=== PATIENT | male | born 1955 | race Caucasian/White ===

== ENCOUNTER 2017-03-23 00:09 | Emergency (ER) | payer BC ==
[~2017-03-23] VITALS: Ht 172.7 cm; Wt 90.3 kg
[~2017-03-23 00:09] MED LIST: GABA300
[2017-03-23 00:20] VITALS: BP 186/105; PULSE 75; RESP 16; TEMP 98.1; O2SAT 96
[2017-03-23 02:02] LABS: BLOOD, URINE TRACE (NEG); GLUCOSE,URINE NEG (NEG); KETONE, URINE TRACE mg/dL (NEG); NITRITE,URINE NEG (NEG); PH, URINE 5.5 (5.0-8.5)
[2017-03-23 02:08] LABS: URINE COLOR YELLOW (YELLW/STRAW)
[2017-03-23 02:09] LABS: CALCIUM OXALATE CRYSTALS,URINE RARE /hpf; MUCUS URINE FEW /lpf (OCC); SQUAMOUS EPITHELIAL CELL URINE 0-5 /hpf (0-5); WBC, URINE 0-2 /hpf (0-5)
[2017-03-23 02:10] LABS: COMMENT (UR) CULT NOT INDICATED; CULTURE IF INDICATED CULT NOT INDICATED
[2017-03-23] MEDS ORDERED: SODIUM CHLOR 0.9% 1000 ML INJ 1,000 ML IV ONE (02:12)
[2017-03-23] MEDS ORDERED: KETOROLAC TROMETHAMINE 30 MG/ML (IVP) VIAL IVP ONE (02:15)
--- NOTE | 2017-03-23 02:17 | PD ---
HPI Chief Complaint: Flank/Kidney Pain Time Seen by Provider: 02:08 Travel History International Travel<30 days: No Contact w/Intl Traveler<30days: No Traveled to known affect area: No History of Present Illness HPI The patient is a 61-year-old male with a history of urinary stones who complains of right flank pain yesterday morning. His pain level was a 6/10 and sharp pain, typical of these previous kidney stones. He states he has not had CT scans of the abdomen recently. At this time he has no pain but states the pain comes on and off. He denies any fever. PFSH Past Medical History Asthma: No Blood Disorders: No Cancer: No Cardiovascular Problems: No Chemotherapy: No COPD: Yes (emphysema ) Cerebrovascular Accident: No Diminished Hearing: No Endocrine: No Genitourinary: No Headaches: No Immune Disorder: No Musculoskeletal: No Neurologic: Yes Psychiatric: No Reproductive: No Respiratory: Yes (on cpap at night) Migraines: No Radiation Therapy: No Seizures: No Sleep Apnea: Yes Tetanus Vaccination: > 5 Years Influenza Vaccination: Yes Past Surgical History Abdominal Surgery: Yes (splenectomy 1980 ) AICD: No Arteriovenous Shunt: No Insulin Pump: No Joint Replacement: No Neurologic Surgery: Yes (1980 head trauma) Pacemaker: No Other Surgery: Yes (sinus surgery ) Social History Alcohol Use: Yes (2X weekly) Tobacco Use: No Substance Use: No Allergies-Medications (Allergen,Severity, Reaction): Coded Allergies: No Known Allergies (Verified , 03/23/17) Reported Meds & Prescriptions Reported Meds & Active Scripts Active No Active Prescriptions or Reported Medications Review of Systems Except as stated in HPI: all other systems reviewed are Neg Physical Exam Narrative GENERAL: The patient is alert, oriented 3 in minimal apparent distress. His vital signs show blood pressure 186/105 but are otherwise normal. SKIN: Focused skin assessment warm/dry. HEAD: Atraumatic. Normocephalic. EYES: Pupils equal and round. No scleral icterus. No injection or drainage. ENT: No nasal bleeding or discharge. Mucous membranes pink and moist. NECK: Trachea midline. No JVD. CARDIOVASCULAR: Regular rate and rhythm. No murmur appreciated. RESPIRATORY: No accessory muscle use. Clear to auscultation. Breath sounds equal bilaterally. GASTROINTESTINAL: Abdomen soft, with minimal discomfort in the right flank to deep palpation, nondistended. Hepatic and splenic margins not palpable. No guarding or rebound is present. MUSCULOSKELETAL: No obvious deformities. No clubbing. No cyanosis. No edema. NEUROLOGICAL: Awake and alert. No obvious cranial nerve deficits. Motor grossly within normal limits. Normal speech. PSYCHIATRIC: Appropriate mood and affect; insight and judgment normal. Data Data Last Documented VS Vital Signs Date Time Temp Pulse Resp B/P Pulse Ox O2 Delivery O2 Flow Rate FiO2 03/23/17 00:20 98.1 75 16 186/105 96 Orders Urinalysis - C+S If Indicated (03/23/17 01:43) Ct Abd/Pel W/O Iv Contrast (03/23/17 02:12) Ecg Monitoring (03/23/17 02:12) Iv Access Insert/Monitor (03/23/17 02:12) Ketorolac Inj (Toradol Inj) (03/23/17 02:15) Sodium Chlor 0.9% 1000 Ml Inj (Ns 1000 M (03/23/17 02:12) Labs Laboratory Tests Test 03/23/17 01:35 Urine Color YELLOW Urine Turbidity CLEAR Urine pH 5.5 Urine Specific [place] 1.028 Urine Protein NEG mg/dL Urine Glucose (UA) NEG mg/dL Urine Ketones TRACE mg/dL Urine Occult Blood TRACE Urine Nitrite NEG Urine Bilirubin NEG Urine Leukocyte Esterase NEG Urine RBC 4-9 /hpf Urine WBC 0-2 /hpf Urine Squamous Epithelial 0-5 /hpf Cells Urine Calcium Oxalate Crystals RARE /hpf Urine Mucus FEW /lpf Microscopic Urinalysis Comment CULT NOT INDICATED MDM Medical Decision Making Medical Screen Exam Complete: Yes Emergency Medical Condition: Yes Medical Record Reviewed: Yes Interpretation(s) The CT abdomen/pelvis without IV contrast shows multiple stones in the kidneys but the only ureteral stone is 4.4 mm and 7.5 mm proximal to the right UVJ. Differential Diagnosis Ureteral stone, urinary tract infection, urethritis, musculoskeletal pain Narrative Course The patient has a 4.4 mm right ureteral stone. He should pass this stone but he needs to follow-up with urology. Diagnosis Primary Impression: Right ureteral calculus Additional Instructions: Do not drink alcohol or drive on the Percocet or the Phenergan. Take the Flomax and the Motrin regularly. Follow-up with her radiologist. Med/Other Pt SpecificInfo: Prescription(s) given Scripts Promethazine (Phenergan)25 Mg [id number] Mg PO Q6H PRN (NAUSEA OR VOMITING) #30 TAB Ref 0 Prov:Edmundo Kramer MD 03/23/17 Oxycodone-Acetaminophen (Percocet)7.5-325 mg Tab1 Tab PO Q4H PRN (PAIN) #30 TAB Ref 0 Prov:Edmundo Kramer MD 03/23/17 Tamsulosin (Flomax)0.4 Mg Cap0.4 Mg PO HS #30 CAP Ref 0 Prov:Edmundo Kramer MD 03/23/17 Ibuprofen 600 Mg Dni105 Mg PO TID #44 TAB Ref 0 Prov:Edmundo Kramer MD 03/23/17 Disposition: 01 DISCHARGE HOME Condition: Stable Edmundo Kramer MD Mar 23, 2017 02:17
--- NOTE | 2017-03-23 02:56 | RADRPT ---
EXAM DATE/TIME: 03/23/2017 02:29 CORRECTION Corrected on: March 23, 2017; [facility] COMPARISON: No previous studies available for comparison. INDICATIONS : Right flank pain. ORAL CONTRAST: No oral contrast ingested. RADIATION DOSE: 19.61 CTDIvol (mGy) MEDICAL HISTORY : Emphysema. SURGICAL HISTORY : Splenectomy. ENCOUNTER: Initial ACUITY: 2 days PAIN SCALE: 1/10 LOCATION: Right flank TECHNIQUE: Volumetric scanning of the abdomen and pelvis was performed. Using automated exposure control and ad justment of the mA and/or kV according to patient size, radiation dose was kept as low as reasonably achievable to obtain optimal diagnostic quality images. DICOM format image data is available electro nically for review and comparison. FINDINGS: Liver, gallbladder, spleen, pancreas, adrenal glands are unremarkable. Left lower pole nonobstructing report 3 mm calculus at, punctate left mid pole renal calculus, and left upper pole nonobstructing 4 .6 mm calculus. Multiple calculi are present on the right including a 2.6 and 1 mm right lower pole c alculus, right midpole 5.7 mm calculus and 2 punctate upper pole calculi. There is moderate right-breanne ed hydronephrosis and hydroureter identified with perinephric and periureteral stranding. Within the right distal ureter on axial a 4.4 mm calculus is noted 7.5 mm proximal to the ureterovesical junctio n. Prostate unremarkable. There are surgical clips in the bilateral inguinal regions from previous he rnia repair. Diverticulosis of the sigmoid colon. Scattered atherosclerotic calcifications. Degenerat rehana changes of the spine are noted. Surgical clips are noted in the left upper quadrant. CONCLUSION: 1. Bilateral nonobstructing renal calculi as well as in obstructing right distal ureteral stone with hydronephrosis, perinephric stranding, hydroureter and periureteral stranding identified. 2. Diverticulosis without diverticulitis. Connor Mera MD on March 23, 2017 at 2:52 Board Certified Radiologist. This report was verified electronically. Connor Mera MD on March 23, 2017 at 3:04 Board Certified Radiologist. This report was verified electronically.
[2017-03-23 03:00] VITALS: BP 100/58; PULSE 74; RESP 18; TEMP 98.7; O2SAT 95
[2017-03-23] MEDS ORDERED: TAMS5CAP PO (03:11)
[2017-03-23] MEDS ORDERED: IBUP-232 PO (03:11)
[2017-03-23] MEDS ORDERED: PROM25TA10 PO (03:11)
[2017-03-23] MEDS ORDERED: PERC7.5T13 PO (03:11)
[2017-03-23] MEDS ORDERED: TAMSULOSIN HCL 0.4 MG CAP PO ONE (03:15)
[2017-03-23 03:39] VITALS: BP 117/57
== END 2017-03-23 03:41 | disposition home or self-care (01) ==
LOC: PHED 00:09
DX: N20.1 Calculus of ureter (principal); G47.30 Sleep apnea, unspecified; Z87.442 Personal history of urinary calculi; Z87.09 Personal history of other diseases of the respiratory system; Z86.69 Personal history of other diseases of the nervous system and sense organs
CPT/HCPCS: 74176; 81001; 96361; 96374; 99285; J1885; J7030